=== PATIENT | male | born 1995 ===

== ENCOUNTER 2025-01-07 11:44 | Inpatient (IN) | payer BC ==
[2025-01-07] MEDS ORDERED: MAGNESIUM HYDROXIDE 2,400 MG/30 ML CUP PO PRN (18:08)
[2025-01-07] MEDS ORDERED: OLANZapine 10 MG VIAL IM PRN (18:08)
[2025-01-07] MEDS ORDERED: MAG HYDROX/AL HYDROX/SIMETH 355 ML BOTTLE PO PRN (18:08)
[2025-01-07] MEDS ORDERED: ACETAMINOPHEN TAB 325 MG TAB PO PRN (18:08)
[2025-01-07] MEDS ORDERED: LORazepam 2 MG/ML INJ IM PRN (18:08)
[2025-01-07] MEDS ORDERED: IBUPROFEN 600 MG TAB PO PRN (18:08)
[2025-01-07] MEDS ORDERED: OLANZapine ODT 5 MG TAB PO PRN (18:11)
[2025-01-07] MEDS: LORazepam 1 MG TAB PO PRN (22:13)
[2025-01-07] MEDS: ZOLPIDEM 5 MG TAB PO PRN (22:46)
[2025-01-07] MEDS: NICOTINE GUM (POLACRILEX) 2 MG GUM BUCCAL PRN (22:46)
[2025-01-08 09:34] LABS: ALT 20 U/L (4-49); AST 22 U/L (17-59); Albumin 4.6 g/dL (3.5-5.0); Alkaline Phosphatase 36 U/L (38-126); Bilirubin, Delta 0.3 mg/dL (0.0-0.2); Bilirubin,Unconjugated 0.8 mg/dL (0.0-1.1); Total Bilirubin 1.1 mg/dL (0.2-1.3); Total Protein 7.3 g/dL (6.3-8.2)
[2025-01-08] MEDS ORDERED: NON FORMULARY DRUG (Zolpidem 10 MG Tab) PO PRN (12:19)
--- NOTE | 2025-01-08 12:48 | P.HP ---
Psychiatric H&P - . H&P Date: 01/08/25 History & Physical: Allergies Allergy/AdvReac Type Severity Reaction Status Date / Time Penicillins Allergy Unknown Verified 01/07/25 18:39 Childhood Vital Signs Temp 98.4 F 01/08/25 09:33 Pulse 113 H 01/08/25 09:33 Resp 16 01/08/25 09:33 BP 101/70 01/08/25 09:33 Pulse Ox 97 01/08/25 09:33 FiO2 Intake & Output 01/07/25 01/08/25 01/08/25 18:59 06:59 18:59 Weight 62.188 kg Laboratory Last Values Total Bilirubin 1.1 mg/dL (0.2-1.3) 01/08/25 08:43 Conjugated Bilirubin 0.0 mg/dL (0.0-0.3) 01/08/25 08:43 Unconjugated Bilirubin 0.8 mg/dL (0.0-1.1) 01/08/25 08:43 Delta Bilirubin 0.3 mg/dL (0.0-0.2) H 01/08/25 08:43 AST 22 U/L (17-59) 01/08/25 08:43 ALT 20 U/L (4-49) 01/08/25 08:43 Alkaline Phosphatase 36 U/L (38-126) L 01/08/25 08:43 Total Protein 7.3 g/dL (6.3-8.2) 01/08/25 08:43 Albumin 4.6 g/dL (3.5-5.0) 01/08/25 08:43 TSH 1.610 mIU/L (0.465-4.680) 01/08/25 08:43 01/08/25 12:30 IDENTIFYING DATA: Patient is a 29-year-old male currently living with his and 2 kids and employed as a tech. HPI: Patient presented to the hospital via transfer under involuntary conditions due to paranoia. The patient notes that this started roughly a week ago when he felt somebody was hacking his phone. He notes that this progressed and he got hyperfocused on it. And then the day of admission he noted there was something going on YouTube on his daughter's television and upstairs. His became overly concerned at this point and contacted the hospital and brought him in for evaluation. The patient notes that he is not hearing any voices or seeing things but feels that people are monitoring him and notes that they are close to him. He gave me permission to speak to his Marnie [phone] at which point she noted that this started last Wednesday with hyper focusing that people it hacked his phone that he became obsessed with it. Eventually he started looking under the bed telling her that people were monitoring her. She notes no changes in medication management or other behaviors outside of being paranoid. The patient currently denies any depression but notes since this incident his anxiety is increased to 5/10 with 10 being worst. He notes that he is getting 4 to 5 hours of sleep however his notes that he is only getting 2 hours of sleep at night. She also notes an incident where he became somewhat manic. He notes that his energy, and appetite are normal. He notes that his concentration is poor but this is due to his ADHD. He denies any feelings of helplessness, hopelessness or worthlessness. He does note bouts of crying but denies any guilt or shame. He denies any suicidal or homicidal thoughts. He denies any access to guns. Review of psychiatric systems was negative for bipolar disorder, OCD, PTSD or anxiety disorders. PAST PSYCHIATRIC HISTORY: Patient has a history of Attention deficit hyperactive disorder. The patient is currently on Adderall XR 15 mg and Adderall IR 10 mg twice daily and has been on this regimen for years. The patient denies any previous hospitalizations or suicide attempts. He denies any outpatient therapy. The patient denies any history of physical, mental or sexual abuse growing up. He notes no history of violence or incarceration. PMH: Lawrence syndrome Syncope ALLERGIES: as per EMR CHEMICAL DEPENDENCY HISTORY: Caffeine-several drinks a day Tobacco uses gum Alcohol-quit drinking 2 years ago FAMILY PSYCHIATRIC/SUBSTANCE USE HISTORY: Denies SOCIAL HISTORY: Patient was born and raised in [facility] up in [place] as this that his childhood was "great". He notes that he had average grades in high school and currently works as a tech. He is living with his for 5 years and 2 children. He notes that he is sikh. He denies any service. MENTAL STATUS EXAM: General Appearance: Patient appears to be his stated age is alert, directable, and attempts to cooperate. Patient appears to have good hygiene and grooming. Behavior: Patient is seated without any agitated behavior. He appeared somewhat nervous but was pleasant and cooperative. Speech: Patient's speech is fluent and nonpressured. Mood/Affect: Patient reports their mood is Anxious, affect is congruent and constricted. Suicidality/Homicidality: Patient denies having any homicidal ideation intent or plan. Denies any suicidal ideations intent or plan Perceptions: Patient denies any visual hallucinations and denies any auditory hallucinations Though content/process: Patient is having delusions of persecution regarding his phone and other things Memory and concentration: AOX3, grossly intact for the purposes of this session. Can spell "WORLD" backwards Judgment and insight: Fair/Poor STRENGTHS/WEAKNESSES: strength is that patient is resilient. Weakness is that patient lack of insight INTELLECT: Average Diagnosis: Unspecified psychosis Attention deficit hyperactive disorder PLAN: -Patient is admitted under involuntary status to MHU for stabilization of psychiatric symptoms and safety. Patient has signed adult voluntary form and medication consent and is placed in patient's chart. -Medications : Start Seroquel 100 mg take 1 tablet by mouth at bedtime for insomnia and psychosis Restart Ambien 10 mg at bedtime for insomnia Hold Adderall due to psychotic break. -Test CT without contrast to rule out mass or stroke due to recent onset psychosis Sed rate to rule out autoimmune disease such as lupus and possible psychosis linked to that EKG to investigate any heart problems for syncope episode -Ativan and Zyprexa PRN for agitation/aggression -Patient was informed of the risks, benefits and side effects of the medication and patient verbally consented to taking the medications. Patient signed med consent form and was placed in chart. -Internal Medicine consult to perform medical evaluation and physical. -NRT -nicotine patch -SW on board for discharge planning. Encourage patient to participate in groups to work on coping skills.
--- NOTE | 2025-01-08 14:28 | CT ---
EXAMINATION TYPE: CT brain wo con DATE OF EXAM: 01/08/2025 1:44 PM COMPARISON: None. CLINICAL INDICATION: Male, 29 years old with history of New onset psychosis patient has a history of Nere[place], psychosis TECHNIQUE: CT of the brain is performed utilizing 3 mm thick sections through the posterior fossa and 3 mm thick sections through the remaining calvarium. Study is performed within 24 hours of arrival to the hospital. Contrast used: mL of , (none if empty) CT DLP: 1147 mGycm, Automated exposure control for dose reduction was used. FINDINGS: No abnormal hyperdensity is present to suggest an acute intracranial hemorrhage. No mass lesion is evident. No acute infarcts are evident. Ventricles and sulci are appropriate for the patient age. Paranasal sinuses and mastoid air cells within the [id number] are clear. IMPRESSION: 1. No acute intracranial process. Follow up MRI can be performed as clinically indicated. [facility], Workstation: [facility], 01/08/2025 2:26 PM
[2025-01-08 15:15] LABS: Chol/HDL Ratio 5.52 Ratio; LDL Cholesterol,Calculated 125.1 mg/dL (0.0-131.0)
[2025-01-08 15:20] LABS: Erythrocyte Sedimentation Rate 2 mm/Hr (0-15)
[2025-01-08 17:18] LABS: ALT 21 U/L (10-49); AST 21 U/L (14-35); Albumin 4.6 g/dL (3.8-4.9); Alkaline Phosphatase 44 U/L (41-126); Blood Urea Nitrogen 11.1 mg/dL (9.0-27.0); Calcium 9.8 mg/dL (8.7-10.3); Carbon Dioxide 21.9 mmol/L (21.6-31.8); Chloride 100 mmol/L (96-109); Glucose 128 mg/dL (70-110); Potassium 4.8 mmol/L (3.5-5.5); Sodium 141 mmol/L (135-145); Total Bilirubin 0.6 mg/dL (0.3-1.2); Total Protein 6.9 g/dL (6.2-8.2)
[2025-01-08] MEDS: QUEtiapine 100 MG TAB PO SCH (20:04)
[2025-01-08 23:10] LABS: Basophils # (A) 0.04 X 10*3/uL (0.00-0.10); Basophils % (A) 0.7 %; Eosinophils # (A) 0.11 X 10*3/uL (0.04-0.35); Eosinophils % (A) 1.8 %; HCT 53.4 % (39.6-50.0); HGB 17.5 g/dL (13.0-17.0); Lymphocytes # (A) 2.61 X 10*3/uL (0.90-5.00); Lymphocytes % (A) 42.6 %; MCH 30.5 pg (27.0-32.0); MCHC 32.8 g/dL (32.0-37.0); Mean Platelet Volume 9.3 FL (9.5-12.2); Monocytes # (A) 0.35 X 10*3/uL (0.20-1.00); Monocytes % (A) 5.7 %; NRBC Per 100 WBC 0 X 10*3/uL (0.00-0.01); Neutrophils # (A) 2.99 X 10*3/uL (1.80-7.70); Neutrophils % (A) 48.9 %; Platelet Count 326 X 10*3/uL (140-440); RBC 5.74 X 10*6/uL (4.40-5.60); RDW 13.5 % (11.5-14.5); WBC 6.12 X 10*3/uL (4.50-10.00)
--- NOTE | 2025-01-09 00:17 | P.HPMEDMHU ---
History of Present Illness H&P Date: 01/08/25 Chief Complaint: psychosis The patient is a 29-year-old male with a history of attention deficit hyperactive disorder on Adderall who presented involuntarily and was hospitali zed for psychosis the patient. The patient was not appear to have a previous episode of psychosis. The patient-my evaluation was awakened from sleep he denies any nausea vomiting chest pain shortness of breath. The patient appears comfortable Review of Systems Psychiatric: Reports paranoia Past Medical History Past Medical History: No Reported History History of Any Multi-Drug Resistant Organisms: None Reported Past Surgical History: Hernia Repair Past Anesthesia/Blood Transfusion Reactions: No Reported Reaction Smoking Status: Former smoker Medications and Allergies Home Medications Medication Instructions Recorded Confirmed Type Dextroamphetamine/Amphetamine 15 mg PO DAILY 01/07/25 01/07/25 History [Adderall Xr 15 mg Capsule] Dextroamphetamine/Amphetamine 10 mg PO BID 01/07/25 01/07/25 History [Adderall] Zolpidem [Ambien] 10 mg PO HS PRN 01/07/25 01/07/25 History cilostazoL [Pletal] 100 mg PO DAILY 01/07/25 01/07/25 History Allergies Allergy/AdvReac Type Severity Reaction Status Date / Time Penicillins Allergy Unknown Verified 01/07/25 18:39 Childhood Physical Exam Vitals: Vital Signs Temp Pulse Resp BP Pulse Ox 01/08/25 21:01 97.6 F 106 H 18 113/81 100 01/08/25 09:33 98.4 F 113 H 16 101/70 97 - Constitutional General appearance: cooperative - EENT Eyes: PERRLA Ears: bilateral: normal - Respiratory Respiratory: bilateral: CTA - Cardiovascular Rhythm: regular - Gastrointestinal General gastrointestinal: normal bowel sounds - Musculoskeletal Musculoskeletal: strength equal bilaterally - Psychiatric Psychiatric: A&O x's 3 Cranial Nerve Examination - Cranial Nerves Cranial Nerve II- Optic: Intact Cranial Nerve III- Oculomotor: Intact Cranial Nerve IV- Trochlear: Intact Cranial Nerve V- Trigeminal: Intact Cranial Nerve - Abducens: Intact Cranial Nerve VII- Facial: Intact Cranial Nerve VIII- Auditory: Intact Cranial Nerve IX- Glossopharyngeal: Intact Cranial Nerve X- Vagus: Intact Cranial Nerve XI- Accessory: Intact Cranial Nerve XII- Hypoglossal: Intact Results CBC & Chem 7: 01/08/25 08:43 01/08/25 08:43 Labs: Abnormal Lab Results - Last 24 Hours (Table) 01/08/25 01/08/25 01/08/25 Range/Units 08:43 08:43 08:43 RBC 5.74 H (4.40-5.60) X 10*6/uL Hgb 17.5 H (13.0-17.0) g/dL Hct 53.4 H (39.6-50.0) % MPV 9.3 L (9.5-12.2) FL Anion Gap 19.10 H (4.00-12.00) mmol/L Glucose 128 H (70-110) mg/dL Delta Bilirubin 0.3 H (0.0-0.2) mg/dL Alkaline Phosphatase 36 L (38-126) U/L Triglycerides 222.00 H (0.00-149.00) mg/dL Cholesterol 207.00 H (0.00-200.00) mg/dL VLDL Cholesterol, Calc 44.40 H (5.00-40.00) mg/dL HDL Cholesterol 37.50 L (40.00-60.00) mg/dL CT Scan - head: report reviewed Thrombosis Risk Factor Assmnt - Choose All That Apply Any of the Below Risk Factors Present?: No Other Risk Factors: No Other congenital or acquired thrombophilia - If yes, enter type in comment: No Thrombosis Risk Factor Assessment Level: Very Low Risk Assessment and Plan (1) ADHD Current Visit: Yes Status: Acute Code(s): F90.9 - ATTENTION-DEFICIT HYPERACTIVITY DISORDER, UNSPECIFIED TYPE SNOMED Code(s): 292428996 (2) Psychosis Current Visit: Yes Status: Acute Code(s): F29 - UNSP PSYCHOSIS NOT DUE TO A SUBSTANCE OR KNOWN PHYSIOL COND SNOMED Code(s): 01381818 (3) Hyperlipidemia Current Visit: Yes Status: Acute Code(s): E78.5 - HYPERLIPIDEMIA, UNSPECIFIED SNOMED Code(s): 28428367 Plan: continue management per psychiatry. Elevated lipids noted normal LFTs will s tart statin
[2025-01-09] MEDS: cilostazoL 100 MG TAB PO SCH (08:58)
[2025-01-09] MEDS ORDERED: NON FORMULARY DRUG (Dextroamphetamine/Amphetamine [Adderall] 10 MG Tablet) PO SCH (09:00)
[2025-01-09] MEDS ORDERED: NON FORMULARY DRUG (Dextroamphetamine/Amphetamine [Adderall Xr 15 Mg Capsule] 15 MG Cap.Er PO SCH (09:00)
--- NOTE | 2025-01-09 09:06 | P.PN ---
Progress Note - Text Progress Note Date: 01/09/25 Interval History: Patient was seen wandering the hallways and was directable and agreeable to hawa wright with scientific writer in the office. Speaking with the patient he notes that he got 8 hours of sleep last night. He denied any auditory or visual hallucinations. He is somewhat ambiguous about being tracked and with the phone versus yesterday. He notes that he has no depression and only mild anxiety. He notes that his energy, appetite and concentration are normal. At this time patient denies any suicidal or homical ideations, intent or plan. Patient denies any side effects from the medications and has been compliant with meds. I spoke with the patient's she notes that he called up yesterday night indicating he still suspected the neighbors of doing something to his phone. Mental Status Exam: General Appearance: Patient appears to be stated age is alert, directable, and cooperative. Behavior: Patient is calmly seated without any agitated behavior. Speech: Patient's speech is fluent and nonpressured. Mood/Affect: Mood is improving mildly, affect is congruent and constricted. Suicidality/Homicidality: Patient denies having any suicidal or homicidal ideation intent or plan. Perceptions: Patient denies any visual hallucinations and denies any auditory hallucinations Though content/process: There is no evidence of any delusional thought content and thought process is linear and goal-directed. Memory and concentration: AOX3, grossly intact for the purposes of this session Judgment and insight: Improving mildly Diagnosis: Unspecified psychosis Attention deficit hyperactive disorder Assessment: The patient appears to be slightly improved and less scared and paranoid today. He notes that he did not have any delusions about the television set last night. His did indicate that he is concerned that his neighbors are causing this while on the phone. This is prior to having a full night of sleep. PLAN: -Patient is admitted under involuntary status to MHU for stabilization of psychiatric symptoms and safety. Patient has signed adult voluntary form and medication consent and is placed in patient's chart. -Medications : Start Seroquel 100 mg take 1 tablet by mouth at bedtime for insomnia and psychosis Ambien 10 mg at bedtime as needed for insomnia Restart Adderall XR 15 take 1 capsule by mouth in the morning for ADHD Adderall IR 10 mg take 1 capsule by mouth twice daily for ADHD -Test CT without contrast to rule out mass or stroke due to recent onset psychosis (negative) Sed rate to rule out autoimmune disease such as lupus and possible psychosis linked to that (normal) EKG to investigate any heart problems for syncope episode (negative) -Ativan and Zyprexa PRN for agitation/aggression -Patient was informed of the risks, benefits and side effects of the medication and patient verbally consented to taking the medications. Patient signed med c onsent form and was placed in chart. -Internal Medicine consult to perform medical evaluation and physical. -NRT -nicotine patch -SW on board for discharge planning. Encourage patient to participate in groups to work on coping skills.
[2025-01-09] MEDS: ATORVASTATIN 40 MG TAB PO SCH (20:44)
[2025-01-10 10:15] VITALS: BP 100/65; PULSE 103; RESP 18; TEMP 97
--- NOTE | 2025-01-10 11:03 | P.DS ---
Providers Date of admission: 01/07/25 17:59 Admission HPI: Admission note was completed by Dr. Haro "Patient presented to the hospital via transfer under involuntary conditions due to paranoia. The patient notes that this started roughly a week ago when he felt somebody was hacking his phone. He notes that this progressed and he got hyperfocused on it. And then the day of admission he noted there was something going on YouTube on his daughter's television and upstairs. His became overly concerned at this point and contacted the hospital and brought him in for evaluation. The patient notes that he is not hearing any voices or seeing things but feels that people are monitoring him and notes that they are close to him. He gave me permission to speak to his Marnie [phone] at which point she noted that this started last Wednesday with hyper focusing that people it hacked his phone that he became obsessed with it. Eventually he started looking under the bed telling her that people were monitoring her. She notes no changes in medication management or other behaviors outside of being paranoid. The patient currently denies any depression but notes since this incident his anxiety is increased to 5/10 with 10 being worst. He notes that he is getting 4 to 5 hours of sleep however his notes that he is only getting 2 hours of sleep at night. She also notes an incident where he became somewhat manic. He notes that his energy, and appetite are normal. He notes that his concentration is poor but this is due to his ADHD. He denies any feelings of helplessness, hopelessness or worthlessness. He does note bouts of crying but denies any guilt or shame. He denies any suicidal or homicidal thoughts. He denies any access to guns. Review of psychiatric systems was negative for bipolar disorder, OCD, PTSD or anxiety disorders." Hospital course: Upon admission to the unit patient was admitted involuntarily on a petition and certificate and a second certificate was completed and faxed to the courts. Patient ended up signing a deferral with the deputy attorney general and agreeing to treatment. Initially during the admission patient had expressed some delusional paranoid thoughts towards being persecuted however after getting some sleep he showed improvement at no time during his admission did he require emergency medicines or restraints. Patient got along well with other patients on the unit and followed unit protocol. Patient was compliant with the medications and denied any side effects throughout hospital course. Patient was started on Seroquel 100 mg take 1 tablet by mouth at bedtime for insomnia/paranoia. Additionally the patient was worked up for new onset psychosis with CT of the head which was negative, and lab work. Additionally the patient was given an EKG due to his syncope episodes which was negative. Patient spoke of his stressors and engaged in therapy both group and individual. Patient was also seen by medical team for history and physical exam. Throughout the course of the hospitalization patient gradually improved with regards to mood, anxiety, sleep and returned back to their baseline level of functioning became more future oriented with improved insight and judgment. On the day of discharge patient denied any suicidal or homicidal ideations intent or plan denied any auditory or visual hallucinations. Patient endorsed wanting to live for their health and family. The patient denied any access to guns or weapons. Patient denied any paranoia and did not endorse any delusions. Patient does not have a significant history of substance abuse. Patient was also counseled on the medications and need for regular compliance and was encouraged to follow-up with their outpatient appointment for mental health and also for primary care. Prior to discharge a family meeting will be arranged by director social service to answer any questions and ensure safety upon discharge incuding making sure that guns/weapons are either removed from the home or locked away. Day of discharge patient was cooperative engaged and denied any psychotic symptoms including paranoia. He notes no side effects with current medications and notes that he slept well without the Ambien with just having the Seroquel on board. He did not get restarted on his stimulants because of lack of access at [place]. Patient voiced a safety plan prior to discharge. Mental status exam: General Appearance: Patient appears to be his stated age is alert, pleasant, and cooperative. Patient is in no acute distress and has improved hygiene and grooming Behavior: Patient is calmly seated without any agitated behavior. Speech: Patient's speech is fluent and nonpressured. Mood/Affect: Patient reports their mood is "better good", affect is congruent and euthymic. Suicidality/Homicidality: Patient denies having any suicidal or homicidal ideation intent or plan. Perceptions: Patient denies any auditory or visual hallucinations. Though content/process: There is no evidence of any delusional thought content and thought process is linear and goal-directed. More future oriented Memory and concentration: AOX3, grossly intact for the purposes of this session. Can spell "WORLD" backwards correctly. Judgment and insight: Fair/Fair Diagnosis: Unspecified psychosis in remission Attention deficit hyperactive disorder Nicotine dependence Plan: -Continue with discharge today as patient has improved and stabilized psychiatrically and is not currently an imminent threat to themself and/or other s. -Continue medications: Seroquel 100 mg take 1 tablet by mouth at bedtime for insomnia and psychosis Ambien 10 mg at bedtime as needed for insomnia Adderall XR 15 take 1 capsule by mouth in the morning for ADHD Adderall IR 10 mg take 1 capsule by mouth twice daily for ADHD -Test CT without contrast to rule out mass or stroke due to recent onset psychosis (negative) Sed rate to rule out autoimmune disease such as lupus and possible psychosis linked to that (normal) EKG to investigate any heart problems for syncope episode (negative) -Patient was counseled on the need for medication compliance and appropriate follow-up at mental health and also primary care for medical issues. Patient verbalized understanding and agreed. -Social work to help coordinate patients discharge today arrange for and conduct family meeting to ensure safety upon discharge and answer any questions/concerns. also to ensure safe home environment that guns/weapons are either removed from the home or locked away. Social work also to arrange for patients follow up appointments with for psychiatric care along with follow up with primary care provider. -Patient was instructed to return to the hospital or seek immediate medical care if their psychiatric or medical symptoms do worsen or reoccur. Expected date of discharge: 01/10/25 Attending physician: Nino Ramos MD Consults: 01/07/25 18:08 Consult Physician Routine Consulting Provider: [facility] Consult Reason/Comments: History and Physical, New Admission Do you want consulting provider notified?: Yes Primary care physician: Stated None - Discharge Diagnosis(es) (1) ADHD Current Visit: Yes Status: Chronic Priority: Medium (2) Hyperlipidemia Current Visit: Yes Status: Acute Priority: Medium (3) Psychosis Current Visit: Yes Status: Resolved Priority: Low Patient Condition at Discharge: Fair Plan - Discharge Summary New Discharge Prescriptions: No Action Zolpidem [Ambien] 10 mg PO HS PRN PRN Reason: Insomnia Dextroamphetamine/Amphetamine [Adderall] 10 mg PO BID cilostazoL [Pletal] 100 mg PO DAILY Dextroamphetamine/Amphetamine [Adderall Xr 15 mg Capsule] 15 mg PO DAILY Discharge Medication List Dextroamphetamine/Amphetamine [Adderall Xr 15 mg Capsule] 15 mg PO DAILY 01/07/25 [History] Dextroamphetamine/Amphetamine [Adderall] 10 mg PO BID 01/07/25 [History] Zolpidem [Ambien] 10 mg PO HS PRN 01/07/25 [History] cilostazoL [Pletal] 100 mg PO DAILY 01/07/25 [History] Follow up Appointment(s)/Referral(s): Psychological, List [Other] - 01/12/25 10:30 am (01/12 10:30 paperwork 11:15 Oneil Gusman) Activity/Diet/Wound Care/Special Instructions: Avoid the use of street drugs and alcohol. Take all medications as prescribed. When you are in need of refills on your medications, please contact your medical provider and/or outpatient psychiatrist/provider to have this done. Please go to your scheduled outpatient appointment for aftercare treatment. If symptoms return or become worse, call the crisis line at and/or go to the nearest emergency room for evaluation. National Suicide Hotline [address] [facility] confidentiality statement: "The information contained in this communication, including attachments, is confidential, may be privileged, and is intended only for the use of the named recipient(s). Unauthorized use, disclosure, forwarding or copying is strictly prohibited and may be unlawful. If you have received this communication in error, please notify me IMMEDIATELY at the phone number or pager listed above.
== END 2025-01-10 13:13 | disposition home or self-care (01) | DRG 885 ==
LOC: 3MHU 17:59
PROVIDERS: ADMIT Psychiatry & Neurology Psychiatry; ATTEND Psychiatry & Neurology Psychiatry
DX: F29 Unspecified psychosis not due to a substance or known physiological condition (principal); F22 Delusional disorders; F30.9 Manic episode, unspecified; E78.5 Hyperlipidemia, unspecified; F17.200 Nicotine dependence, unspecified, uncomplicated; F41.9 Anxiety disorder, unspecified; F90.9 Attention-deficit hyperactivity disorder, unspecified type; G47.00 Insomnia, unspecified; Z88.0 Allergy status to penicillin; Z79.02 Long term (current) use of antithrombotics/antiplatelets; Z79.899 Other long term (current) drug therapy
CPT/HCPCS: 70450; 80053; 80061; 80076; 83036; 84443; 85025; 85652; 93005